=== PATIENT | male | born 1970 | race Hispanic/Latino ===

== ENCOUNTER 2020-04-03 10:24 | Emergency (ER) | payer OTHER ==
[2020-04-03] MEDS ORDERED: ASPIRIN 325 MG TAB PO ONE (10:38)
--- NOTE | 2020-04-03 10:44 | Emergency Department Report ---
ED Chest Pain HPI - General Chief Complaint: Chest Pain Stated Complaint: CHEST PAIN PUI?: No Time Seen by Provider: 04/03/20 10:41 Source: patient, RN notes reviewed Mode of arrival: Stretcher Limitations: Physical Limitation - History of Present Illness Initial Comments: Patient is a 49-year-old gentleman. He is not known to myself previously. He appears to have a history of obesity, hypertension, high cholesterol, he is c urrently on Plavix, for unclear reasons, and also on Pradaxa, for unclear reasons. He typically follows with the [facility]. He presents to the ER with a complaint of possible syncope/near syncope, and chest pressure/discomfort. Patient states he has been compliant with his medications, he was in his usual state of health earlier on today, when he believes that he fell, or "fell out", he is not certain, denies headache and neck pain, describes nonspecific chest discomfort, denies DVT and pulmonary embolism risk factors, and has chronic lower extremity swelling. He denies fever, loss of taste, loss of smell, and COVID symptomatology/COVID exposure. He does take sildenifial, he believes that he took it a few weeks ago, but he is not certain. Apparently, emergency medical services were contacted, and they gave the patient aspirin, and nitroglycerin. He has significant anxiety, but he is basically having minimal pain at this time, rating his pain as a 3 out of 10 at this point in time. MD Complaint: chest pain -: Sudden, hour(s) Onset: during exertion Pain Location: substernal, left chest, right chest Pain Radiation: none Severity: moderate Quality: other (Patient does not have a qualitative descriptor) Consistency: now resolved (Chest discomfort is mostly resolved) Improves With: nitroglycerin, rest Worsens With: nothing (Nothing that the patient can recall) Context: other (Patient was working on a lawnmower) Treatments Prior to Arrival: aspirin, nitroglycerin Aspirin use within the Past 7 Days: (0) No - Related Data On Oral Contraceptives: No Home Medications Medication Instructions Recorded Confirmed Last Taken AtorvaSTATin [Lipitor] 40 mg PO QHS 04/03/20 04/03/20 Unknown Clopidogrel [Plavix] 75 mg PO QDAY 04/03/20 04/03/20 Unknown Dabigatran Etexilate Mesylate 150 mg PO QDAY 04/03/20 04/03/20 Unknown [Pradaxa] Famotidine [Pepcid] 20 mg PO BID 04/03/20 04/03/20 Unknown Gabapentin [Neurontin] 300 mg PO QDAY 04/03/20 04/03/20 Unknown Losartan [Cozaar] 25 mg PO QDAY 04/03/20 04/03/20 Unknown Potassium Chloride [K-Dur] 10 meq PO QDAY 04/03/20 04/03/20 Unknown Sertraline [Zoloft] 50 mg PO QDAY 04/03/20 04/03/20 Unknown Sildenafil [Revatio] 20 mg PO QDAY 04/03/20 04/03/20 Unknown Tamsulosin [Flomax] 0.4 mg PO QDAY 04/03/20 04/03/20 Unknown Torsemide [Demadex] 20 mg PO BID 04/03/20 04/03/20 Unknown amLODIPine [Norvasc] 5 mg PO DAILY 04/03/20 04/03/20 Unknown Allergies Allergy/AdvReac Type Severity Reaction Status Date / Time No Known Allergies Allergy Unverified 04/03/20 10:37 Heart Score - HEART Score History: Moderately suspicious EKG: Non-specific Age: 45-65 Risk factors: > 3 risk factors or hx of atherosclerotic disease Troponin: < normal limit HEART Score: 5 - Critical Actions Critical Actions: 4-6 pts:12-16.6% risk of adverse cardiac event. Should be admitted ED Review of Systems ROS: Stated complaint: CHEST PAIN Other details as noted in HPI Constitutional: malaise, weakness. denies: fever Eyes: denies: eye discharge Respiratory: denies: cough Cardiovascular: chest pain, edema, other Gastrointestinal: denies: nausea, vomiting, diarrhea Musculoskeletal: back pain (Patient reports chronic back) Skin: denies: lesions Neurological: denies: headache Psychiatric: anxiety ED Past Medical Hx - Past Medical History Previous Medical History?: Yes Hx Congestive Heart Failure: Yes - Surgical History Hx Coronary Stent: Yes (x1) Additional Surgical History: Brain aneruysm - Social History Smoking Status: Current Every Day Smoker Substance Use Type: None - Medications Home Medications: Home Medications Medication Instructions Recorded Confirmed Last Taken Type AtorvaSTATin [Lipitor] 40 mg PO QHS 04/03/20 04/03/20 Unknown History Clopidogrel [Plavix] 75 mg PO QDAY 04/03/20 04/03/20 Unknown History Dabigatran Etexilate Mesylate 150 mg PO QDAY 04/03/20 04/03/20 Unknown History [Pradaxa] Famotidine [Pepcid] 20 mg PO BID 04/03/20 04/03/20 Unknown History Gabapentin [Neurontin] 300 mg PO QDAY 04/03/20 04/03/20 Unknown History Losartan [Cozaar] 25 mg PO QDAY 04/03/20 04/03/20 Unknown History Potassium Chloride [K-Dur] 10 meq PO QDAY 04/03/20 04/03/20 Unknown History Sertraline [Zoloft] 50 mg PO QDAY 04/03/20 04/03/20 Unknown History Sildenafil [Revatio] 20 mg PO QDAY 04/03/20 04/03/20 Unknown History Tamsulosin [Flomax] 0.4 mg PO QDAY 04/03/20 04/03/20 Unknown History Torsemide [Demadex] 20 mg PO BID 04/03/20 04/03/20 Unknown History amLODIPine [Norvasc] 5 mg PO DAILY 04/03/20 04/03/20 Unknown History ED Physical Exam - General Limitations: No Limitations General appearance: alert, anxious, obese - Head Head exam: Present: atraumatic, normocephalic - Eye Eye exam: Present: normal appearance, EOMI. Absent: nystagmus - ENT ENT exam: Present: normal exam, normal orophraynx, mucous membranes moist, normal external ear exam - Neck Neck exam: Present: normal inspection, full ROM. Absent: tenderness, meningismus - Respiratory Respiratory exam: Present: rales, accessory muscle use. Absent: respiratory distress, wheezes, rhonchi, stridor - Cardiovascular Cardiovascular Exam: Present: regular rate, normal rhythm, normal heart sounds, JVD. Absent: bradycardia, tachycardia, irregular rhythm, systolic murmur, diastolic murmur, rubs, gallop - GI/Abdominal GI/Abdominal exam: Present: soft. Absent: distended, tenderness, guarding, rebound, rigid, pulsatile mass - Rectal Rectal exam: Present: deferred - Extremities Exam Extremities exam: Present: normal inspection, full ROM, pedal edema (3+ edema noted on the bilateral lower extremity), other (2+ pulses noted in the bilateral upper and lower extremities. There is no palpable cord. negative Homans sign. Muscular compartments are soft. The pelvis is stable.). Absent: calf tenderness - Back Exam Back exam: Present: normal inspection. Absent: tenderness, CVA tenderness (R), CVA tenderness (L), paraspinal tenderness, vertebral tenderness - Neurological Exam Neurological exam: Present: alert, other (No facial droop. Tongue midline. Extraocular movements intact bilaterally. Facial sensation intact to light touch in V1, V2, V3 distribution bilaterally. 5 and a 5 strength in 4 extremities. Sensation intact to light touch in 4 extremities.). Absent: motor sensory deficit - Psychiatric Psychiatric exam: Present: anxious - Skin Skin exam: Present: warm, dry, intact, normal color. Absent: rash ED Course Vital Signs 04/03/20 04/03/20 04/03/20 10:37 10:49 10:51 Temperature 98.3 F Pulse Rate 97 H 91 H Respiratory 13 9 L Rate Blood Pressure 144/89 O2 Sat by Pulse 96 Oximetry 04/03/20 04/03/20 04/03/20 10:53 10:55 10:56 Temperature Pulse Rate 94 H 90 Respiratory 13 20 12 Rate Blood Pressure 144/89 144/89 O2 Sat by Pulse 96 93 92 Oximetry 04/03/20 04/03/20 04/03/20 11:00 11:30 12:01 Temperature Pulse Rate 86 94 H 89 Respiratory 12 13 16 Rate Blood Pressure 158/74 174/96 173/50 O2 Sat by Pulse 95 94 96 Oximetry 04/03/20 04/03/20 04/03/20 12:33 12:35 12:36 Temperature Pulse Rate 91 H Respiratory 12 13 13 Rate Blood Pressure 174/96 O2 Sat by Pulse Oximetry - Reevaluation(s) Reevaluation #1: 04/03/20 12:12 Differential diagnosis, including but not limited to: Orthostasis, vagal event, structural cardiac disease, arrhythmia, acute coronary syndrome, congestive heart failure Assessment and plan: 49-year-old gentleman, who is not currently tachycardic, with crackles, rales, hypoxia, lower extremity edema, my interpretation of the chest x-ray is consistent with congestive heart failure, I disagree with radiology interpretation. Had nonspecific chest discomfort, and possible syncope/loss of consciousness. There is no headache or neck pain, and he has a GCS of 15. Do not suspect acute aortic dissection at this time, given equal pulses in the upper and lower extremities, An x-ray of the chest morphology. His pain is minimal at this time. Nitroglycerin will be withheld given that we do not know if/when the patient has recently taken his phosphodiesterase inhibitor. He has already been given aspirin. He is given Lasix for acute volume overload. I contacted [facility] coordinating physician, Dr. Alana Ibarra; [phone], and discussed the patient's history, physical, laboratory studies and clinical impression, and have requested emergent transfer to 1 of the [facility] receiving facilities, as the patient has endorses a desire to be transferred. Dr. Ibarra has requested a repeat troponin, and requested that the patient's pain be treated. I advised Dr. Ibarra that I would consider his current clinical status medically suitable for transfer for further evaluation and management, but we will give a small dose of morphine for additional pain control. Patient did give consent for his case to be discussed with his mother. His mother is at the bedside. Patient at moderate risk for major adverse cardiac event as per current heart score. We are awaiting repeat troponin, repeat EKG, Dr. Ibarra has asked that I call her back once the initial troponin has resulted. The patient has requested to be transferred to [facility], Dr. Ibarra advises that patient because of his underlying insurance will need to go to [facility] Reevaluation #2: 04/03/20 13:26 Dr Elizabeth to accept to [facility] --> rca intervention, afib, mca aneurysm, sleep apnea ct head negative to my interpretation. Troponin negative x2. Dr. Ibarra updated. Family updated as well. SILVESTRE score - Silvestre Score Age > 65: (0) No Aspirin use within the Past 7 Days: (0) No 3 or more CAD Risk Factors: (1) Yes 2 or more Angina events in past 24 hrs: (1) Yes Known CAD with more than 50% Stenosis: (0) No Elevated Cardiac Markers: (0) No ST Deviation Greater than 0.5mm: (0) No SILVESTRE Score: 2 ED Medical Decision Making - Lab Data Result diagrams: 04/03/20 10:45 04/03/20 10:45 Vital Signs 04/03/20 04/03/20 04/03/20 10:37 10:49 10:51 Temperature 98.3 F Pulse Rate 97 H 91 H Respiratory 13 9 L Rate Blood Pressure 144/89 O2 Sat by Pulse 96 Oximetry 04/03/20 04/03/20 04/03/20 10:53 10:55 10:56 Temperature Pulse Rate 94 H 90 Respiratory 13 20 12 Rate Blood Pressure 144/89 144/89 O2 Sat by Pulse 96 93 92 Oximetry 04/03/20 04/03/20 11:00 11:30 Temperature Pulse Rate 86 94 H Respiratory 12 13 Rate Blood Pressure 158/74 174/96 O2 Sat by Pulse 95 94 Oximetry Lab Results 04/03/20 04/03/20 04/03/20 Range/Units 10:45 10:45 10:45 WBC 8.9 (4.5-11.0) K/mm3 RBC 7.19 H (3.65-5.03) M/mm3 Hgb 14.0 (11.8-15.2) gm/dl Hct 46.3 H (35.5-45.6) % MCV 64 L (84-94) fl MCH 20 L (28-32) pg MCHC 30 L (32-34) % RDW 23.2 H (13.2-15.2) % Plt Count 303 (140-440) K/mm3 Lymph % (Auto) 16.3 (13.4-35.0) % [place] % (Auto) 9.0 H (0.0-7.3) % Eos % (Auto) 1.1 (0.0-4.3) % Baso % (Auto) 1.0 (0.0-1.8) % Lymph # 1.5 (1.2-5.4) K/mm3 [place] # 0.8 (0.0-0.8) K/mm3 Eos # 0.1 (0.0-0.4) K/mm3 Baso # 0.1 (0.0-0.1) K/mm3 Seg Neutrophils % 72.0 H (40.0-70.0) % Seg Neutrophils # 6.6 (1.8-7.7) K/mm3 PT 10.9 L (12.2-14.9) Sec. INR 0.80 L (0.87-1.13) Sodium 141 (137-145) mmol/L Potassium 4.5 (3.6-5.0) mmol/L Chloride 98.9 (98-107) mmol/L Carbon Dioxide 31 H (22-30) mmol/L Anion Gap 16 mmol/L BUN 12 (9-20) mg/dL Creatinine 1.0 (0.8-1.5) mg/dL Estimated GFR > 60 ml/min BUN/Creatinine Ratio 12 % Glucose 87 (75-100) mg/dL Calcium 9.9 (8.4-10.2) mg/dL Magnesium (1.7-2.3) mg/dL Total Creatine Kinase (55-170) units/L Troponin T < 0.010 (0.00-0.029) ng/mL NT-Pro-B Natriuret Pep (0-450) pg/mL 04/03/20 04/03/20 Range/Units 10:45 10:45 WBC (4.5-11.0) K/mm3 RBC (3.65-5.03) M/mm3 Hgb (11.8-15.2) gm/dl Hct (35.5-45.6) % MCV (84-94) fl MCH (28-32) pg MCHC (32-34) % RDW (13.2-15.2) % Plt Count (140-440) K/mm3 Lymph % (Auto) (13.4-35.0) % [place] % (Auto) (0.0-7.3) % Eos % (Auto) (0.0-4.3) % Baso % (Auto) (0.0-1.8) % Lymph # (1.2-5.4) K/mm3 [place] # (0.0-0.8) K/mm3 Eos # (0.0-0.4) K/mm3 Baso # (0.0-0.1) K/mm3 Seg Neutrophils % (40.0-70.0) % Seg Neutrophils # (1.8-7.7) K/mm3 PT (12.2-14.9) Sec. INR (0.87-1.13) Sodium (137-145) mmol/L Potassium (3.6-5.0) mmol/L Chloride (98-107) mmol/L Carbon Dioxide (22-30) mmol/L Anion Gap mmol/L BUN (9-20) mg/dL Creatinine (0.8-1.5) mg/dL Estimated GFR ml/min BUN/Creatinine Ratio % Glucose (75-100) mg/dL Calcium (8.4-10.2) mg/dL Magnesium 2.30 (1.7-2.3) mg/dL Total Creatine Kinase 354 H (55-170) units/L Troponin T (0.00-0.029) ng/mL NT-Pro-B Natriuret Pep 98.91 (0-450) pg/mL - EKG Data -: EKG Interpreted by Ga EKG shows normal: sinus rhythm Rate: normal - EKG Data When compared to previous EKG there are: previous EKG unavailable 04/03/20 11:58 There is no prior EKG available for comparison. Sinus rhythm, 94 bpm, normal axis, normal intervals, high left ventricular voltage, the EKG is not a STEMI, premature atrial complex. No prior for comparison. - Radiology Data Radiology results: report reviewed, image reviewed Print Report Referring Physician: NORBERT LUZ Patient Name: REN RODRIGUES Date of : 1970 Sex: Male Report Date: 2020-04-03 Report Status: Finalized Findings [facility] [address] [place] [address] XRay Report Signed Patient: REN RODRIGUES MR#: [id number] : 1970 Acct:[id number] Age/Sex: 49 / M ADM Date: 04/03/20 Loc: ED Attending Dr: Ordering Physician: NORBERT LUZ MD Date of Service: 04/03/20 Procedure(s): XR chest 1V ap Accession Number(s): [id number] cc: NORBERT LUZ MD Fluoro Time In Minutes: CHEST 1 VIEW INDICATION / CLINICAL INFORMATION: acute chnest pain. COMPARISON: None available. FINDINGS: SUPPORT DEVICES: None. HEART / MEDIASTINUM: No significant abnormality. LUNGS / PLEURA: No significant pulmonary or pleural abnormality. No pneumothorax. ADDITIONAL FINDINGS: No sig nificant additional findings. IMPRESSION: 1. No significant change Signer Name: Benja Pizarro MD Signed: 04/03/2020 11:43 AM Workstation Name: [employer] Transcribed By: BLU Dictated By: Benja Pizarro MD Electronically Authenticated By: Benja Pizarro MD Signed Date/Time: 04/03/20 1143 DD/ 1142 TD/TT: Critical Care Time: Yes Critical care time in (mins) excluding proc time.: 35 Critical care attestation.: If time is entered above; I have spent that time in minutes in the direct care of this critically ill patient, excluding procedure time. ED Disposition Clinical Impression: Acute chest pain, Acute CHF, Anticoagulated, History of syncope Disposition: [id number]/[id number] [facility] IP Is pt being admited?: No Does the pt Need Aspirin: No (Patient given aspirin by EMS) Condition: Stable Instructions: Chest Pain (ED) Referrals: PRIMARY CARE, [Primary Care Provider] - 3-5 Days
[2020-04-03 11:14] LABS: Basophils # (Auto) 0.1 K/mm3 (0.0-0.1); Eosinophils # (Auto) 0.1 K/mm3 (0.0-0.4); Eosinophils % (Auto) 1.1 % (0.0-4.3); Monocytes # (Auto) 0.8 K/mm3 (0.0-0.8)
[2020-04-03 11:26] LABS: INR 0.8 (0.87-1.13)
[2020-04-03 11:27] LABS: Lymphocytes # (Auto) 1.5 K/mm3 (1.2-5.4); Lymphocytes % (Auto) 16.3 % (13.4-35.0); Mean Corpuscular HGB Conc 30 % (32-34); Platelet Count 303 K/mm3 (140-440); Red Blood Count 7.19 M/mm3 (3.65-5.03)
[2020-04-03 11:35] LABS: BUN/Creatinine Ratio 12; Blood Urea Nitrogen 12 mg/dL (9-20); Calcium 9.9 mg/dL (8.4-10.2); Hemolysis Index 11
[2020-04-03 11:38] LABS: Hematocrit 46.3 % (35.5-45.6); Mean Corpuscular Volume 64 fl (84-94); Red Cell Distribution Width 23.2 % (13.2-15.2)
[2020-04-03] MEDS ORDERED: NITROGLYCERIN 0.4 MG TAB SUBL SL PRN (11:57)
[2020-04-03] MEDS ORDERED: FUROSEMIDE 40 MG/4 ML INJ IV ONE (11:57)
[2020-04-03] MEDS ORDERED: MORPHINE 4 MG/1 ML INJ IV ONE (12:06)
[2020-04-03] MEDS ORDERED: ACETAMINOPHEN 325 MG TAB PO ONE (12:07)
[2020-04-03] MEDS ORDERED: FAMOTIDINE 20 MG TAB PO ONE (12:07)
[2020-04-03 14:15] VITALS: BP 160/64
== END 2020-04-03 14:21 | disposition short-term general hospital (02) ==
LOC: ED 10:24
DX: I50.9 Heart failure, unspecified (principal); F17.200 Nicotine dependence, unspecified, uncomplicated; Z95.818 Presence of other cardiac implants and grafts; Z98.890 Other specified postprocedural states
CPT/HCPCS: 36415; 70450; 71045; 80048; 82550; 83735; 83880; 84484; 85025; 85610; 93005; 96374; 96375; 99291; J1940; J2270